=== PATIENT | male | born 1965 | race Caucasian/White ===

== ENCOUNTER 2016-06-01 19:29 | Emergency (ER) | payer OTHER ==
[2016-06-01 21:00] VITALS: BP 150/96
== END 2016-06-01 21:00 | disposition home or self-care (01) ==
LOC: ED 19:29
DX: T15.02XA Foreign body in cornea, left eye, initial encounter (principal); W20.8XXA Other cause of strike by thrown, projected or falling object, initial encounter; Y93.89 Activity, other specified; Y92.810 Car as the place of occurrence of the external cause; Y99.8 Other external cause status
CPT/HCPCS: 90715